=== PATIENT | male | born 1950 | race Hispanic/Latino ===

== ENCOUNTER → 2017-07-08 | Day surgery (SDC) | payer MEDICARE, BC ==
[2017-07-07 10:11] LABS: BASOPHILS % 0.5 % (0.0-1.0); EOSINOPHILS # (AUTO) 0.3 (0.0-0.4); EOSINOPHILS % 3.7 % (0.0-6.0); HEMATOCRIT 46.5 % (38.2-49.6); HEMOGLOBIN 16.2 g/dL (14.0-18.0); LYMPHOCYTES # (AUTO) 1.7 (1.0-3.2); LYMPHOCYTES % 22.1 % (18.0-39.1); MEAN CORPUSCULAR HEMOGLOBIN 32.5 pg (28-32); MEAN CORPUSCULAR HGB CONC 34.8 g/dL (31-35); MEAN CORPUSCULAR VOLUME 93.4 fL (81-99); MONOCYTES # (AUTO) 0.6 (0.2-0.8); MONOCYTES % 8.3 % (4.4-11.3); NEUTROPHILS # (AUTO) 4.9 (2.1-6.9); NEUTROPHILS % 65.1 % (38.7-80.0); PLATELET COUNT 241 x10e3/uL (140-360); RED BLOOD COUNT 4.98 x10e6/uL (4.3-5.7); RED CELL DISTRIBUTION WIDTH 12.6 % (11.7-14.4)
--- NOTE | 2017-07-07 10:54 | Diagnostic Imaging Report ---
PROCEDURE:CHEST 2 VIEWS TECHNIQUE:PA and lateral chest INDICATION:Preoperative evaluation for hand surgery. COMPARISON:None. FINDINGS: Lungs are clear. No pleural effusions. Tortuous thoracic aorta. Prominent right paratracheal soft tissue. Normal central vasculature. Intact skeleton. CONCLUSION: 1. No acute abnormality. 2. Prominent right paratracheal soft tissue, likely confluence of vascular structures and tortuous thoracic aorta. Followup 2 view chest radiograph is recommended in 3 months. Dictated by: Kana Cuevas M.D. on 07/07/2017 at 11:02 Electronically approved by: Kana Cuevas M.D. on 07/07/2017 at 11:02
[~2017-07-08] MED LIST: BUPIVACAINE HCL 0.5% INJ 30 ML VIAL INJ ONE; CEFAZOLIN SOD 1 GM/NS 50ML 50 ML IV ONE; FENTANYL CITRATE/PF 100MCG/2 ML INJ ONE; LIDOCAINE 1% W/EPINEPHRINE 20 ML VIAL ONE; LIDOCAINE HCL 2% LOCAL INJ 5 ML SDV VIAL INJ ONE; MIDAZOLAM HCL 5MG/ML 2ML VIAL ONE; PROPOFOL IV EMULSION 10 MG/ML 20 ML VIAL ONE
--- NOTE | 2017-07-08 14:02 | Operative Report ---
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 PROCEDURES: 1. Wide local excision of squamous cell carcinoma dorsum of right hand, approximately 15 cm squared. 2. Full-thickness skin grafting dorsum right hand, 15 cm squared. ANESTHESIA: Sedation/local. INDICATIONS: The patient is a 66-year-old [id number] male who underwent 2 weeks ago an incisional biopsy of a suspicious lesion on the dorsal aspect of the right hand. The path report revealed that this was an invasive squamous cell carcinoma, and the patient now presents for definitive wide local excision of the malignant neoplasm with frozen control of the margins and then closure. The risks, benefits and alternatives of treatment were discussed with the patient. He is prepared to undergo the procedures outlined. DETAILS OF PROCEDURE: Patient was marked preoperatively in the holding area. He was brought to the operating theater, and after the induction of adequate IV sedation, he was prepped and draped in a supine position. A time out was performed. The procedure was begun by marking out the previous incisional biopsy site and then going approximately 1 to 1.5 cm away from the lesion on all sides. At this point, the area was infiltrated with 1% Xylocaine with epinephrine. A total of 10 mL was utilized. After waiting an appropriate amount time for maximum vasoconstrictive effect, a wide local excision of the malignant neoplasm was performed all the way down to the subcutaneous plane. The specimen was removed and then oriented with stitches and then sent for frozen section control of the margins. The frozen section report revealed there to be clear margins circumferentially and on the deep surface. At this point, the defect measured approximately 15 cm squared, and primary closure was precluded. At this point, a full-thickness skin graft was marked out on the medial aspect of the right elbow. The area was then infiltrated with 1% Xylocaine with epinephrine, and then a full-thickness skin graft was harvested from this area. The wound was made hemostatic using the electrocautery and was closed in layers utilizing 4-0 Vicryl in an interrupted buried fashion, followed by 5-0 nylon in an interrupted horizontal mattress fashion. The full-thickness skin graft was then defatted down to the deep dermal plane. It was placed onto the wound bed on the dorsum of the hand and secured in place using 5-0 chromic sutures. Several incisions were made in the graft in order to allow the egress of fluid should it accumulate beneath the graft. A bolster-type dressing was fashioned from circumferential 4-0 silk sutures, Bactroban ointment and Xeroform gauze onto the graft, and then moistened cotton balls and then having the 4-0 silk sutures tied in a bolster-type fashion over the dorsal aspect of the graft. A sterile dressing was applied over the bolster dressing. The medial elbow area was dressed with Xeroform gauze, Bactroban ointment and a sterile dressing. The estimated blood loss for the procedure was approximately 15 to 25 mL. The patient tolerated the procedure well, was brought to the recovery room in satisfactory condition and discharged with a postoperative instruction sheet as well as a followup appointment. Job#: [id number]
== END | disposition home or self-care (01) ==
LOC: OR 07:33
PROVIDERS: ATTEND Plastic Surgery
DX: C44.622 Squamous cell carcinoma of skin of right upper limb, including shoulder (principal); Z01.810 Encounter for preprocedural cardiovascular examination; Z01.812 Encounter for preprocedural laboratory examination; Z01.818 Encounter for other preprocedural examination
CPT/HCPCS: 11626; 15240; 36415; 71020; 85025; 88307; 88331; 88332; 93005; J2001; J2250; 88305